=== PATIENT | male | born 1965 | race Caucasian/White ===

== ENCOUNTER 2020-06-08 11:46 | Day surgery (SDC) | payer MEDICARE, MEDICAID ==
[~2020-06-08 11:46] MED LIST: CEFAZOLIN 2 GM/D5W RTU 2 GM/50 ML RTUPB IV PRN; CEFAZOLIN SODIUM 2 GM in DEXTROSE 5%-WATER 100 ML IV PRN; FENTANYL CITRATE INJ/PF 100 MCG/2 ML AMPUL ONE; MIDAZOLAM 2 MG/2 ML INJ ONE; ONDANSETRON HCL INJ/PF 4 MG/2 ML SDV ONE; PROPOFOL INJ 200 MG/20 ML VIAL IV ONE
[2020-06-08] MEDS ORDERED: BUPIVACAINE HCL 0.5 % INJ/PF 30 ML SDV ONE (11:54)
[2020-06-08] MEDS ORDERED: LIDOCAINE 1% INJ-PF (10 MG/ML) 30 ML SDV ONE (11:54)
[2020-06-08] MEDS ORDERED: BACITRACIN INJ 50,000 UNIT VIAL ONE (11:55)
[2020-06-08] MEDS ORDERED: HYDROMORPHONE HCL INJ/PF 2 MG/ML AMPULE ONE ×2 (11:56→15:01)
[2020-06-08] MEDS ORDERED: FENTANYL CITRATE INJ/PF 100 MCG/2 ML AMPUL ONE (11:56)
[2020-06-08] MEDS ORDERED: PROPOFOL INJ 200 MG/20 ML VIAL IV ONE (11:56)
[2020-06-08] MEDS ORDERED: MIDAZOLAM 2 MG/2 ML INJ ONE (11:56)
[2020-06-08] MEDS ORDERED: CEFAZOLIN 2 GM/D5W RTU 2 GM/50 ML RTUPB IV ONE (12:16)
[2020-06-08 12:33] LABS: HEMATOCRIT 43.3 % (37.9-51.0); HEMOGLOBIN 15.1 g/dL (13.5-17.0); MEAN CORPUSCULAR VOLUME 92 fl (80-97); PLATELET COUNT 240 10^3/uL (150-450); RED BLOOD COUNT 4.73 10^6/uL (4.35-5.55); RED CELL DISTRIBUTION WIDTH 14.1 % (11.5-14.0); WHITE BLOOD COUNT 7.1 10^3/uL (4.0-10.5)
[2020-06-08] MEDS ORDERED: BETAMET ACET/BETAMET NA INJ 6 MG/1 ML ONE (12:48)
--- NOTE | 2020-06-08 12:55 | RADIOLOGY REPORT (SQ) ---
EXAM DESCRIPTION: CHEST SINGLE VIEW IMAGES COMPLETED DATE/TIME: 06/08/2020 12:36 pm REASON FOR STUDY: PRE OP COMPARISON: None. EXAM PARAMETERS: NUMBER OF VIEWS: One view. TECHNIQUE: Single frontal radiographic view of the chest acquired. RADIATION DOSE: NA LIMITATIONS: None. FINDINGS: LUNGS AND PLEURA: No opacities, masses or pneumothorax. No pleural effusion. MEDIASTINUM AND HILAR STRUCTURES: No masses. Contour normal. HEART AND VASCULAR STRUCTURES: Heart normal in size. Normal vasculature. BONES: No acute findings. HARDWARE: None in the chest. Hardware in the lower cervical spine. OTHER: No other significant finding. IMPRESSION: NO ACUTE RADIOGRAPHIC FINDING IN THE CHEST. TECHNICAL DOCUMENTATION: JOB ID: [id number] 2010 [employer]- All Rights Reserved Reading location - IP/workstation name: [email or web address]
[2020-06-08 12:59] LABS: ANION GAP 9 (5-19); BLOOD UREA NITROGEN 14 mg/dL (7-20); CALCIUM 9.5 mg/dL (8.4-10.2); CARBON DIOXIDE 22 mmol/L (22-30); CHLORIDE 109 mmol/L (98-107); GLUCOSE 105 mg/dL (75-110); POTASSIUM 4.5 mmol/L (3.6-5.0)
[2020-06-08] MEDS ORDERED: MEPERIDINE HCL/PF INJ 25 MG/1 ML DISP.SYRIN IV PRN (13:24)
[2020-06-08] MEDS ORDERED: FENTANYL CITRATE INJ/PF 100 MCG/2 ML AMPUL IV PRN ×3 (13:24)
[2020-06-08] MEDS ORDERED: DIPHENHYDRAMINE HCL 50 MG/ML VIAL IV PRN (13:24)
[2020-06-08] MEDS ORDERED: PROMETHAZINE HCL INJ 25 MG/1 ML VIAL IV PRN ×2 (13:24)
[2020-06-08] MEDS ORDERED: HYDROMORPHONE HCL INJ/PF 2 MG/ML AMPULE IV PRN ×2 (13:24→14:52)
[2020-06-08] MEDS ORDERED: ONDANSETRON HCL INJ/PF 4 MG/2 ML SDV ONE (14:03)
[2020-06-08] MEDS ORDERED: DEXAMETHASONE SOD PHOSPHATE INJ 4 MG/1 ML VIAL ONE (14:03)
[2020-06-08] MEDS ORDERED: ONDANSETRON HCL INJ/PF 4 MG/2 ML SDV IV PRN (14:52)
[2020-06-08] MEDS ORDERED: OXYCODONE-ACETAMINOPHEN 5-325 MG TABLET PO PRN (14:52)
--- NOTE | 2020-06-08 14:52 | Discharge Summary ---
Discharge Summary (SDC) - Discharge Final Diagnosis: Right distal biceps rupture Date of Surgery: 06/08/20 Discharge Date: 06/08/20 Condition: Good Treatment or Instructions: Schedule Follow Up w/ Dr. Wiliam Sorenson @ [facility] to be seen in 10-14 days or as scheduled [place]: [place]: [place]: Ice and elevate Keep splint clean/dry/intact, do not remove. If your fingers become numb please unwrap the Luis wrap but leave the splint in place, if the sensation does not return within 30 minutes please return to the emergency department. May begin finger range of motion attempting to make full fist. Please use ibuprofen (Motrin or Advil) 600-800 mg every 8 hours as needed for pain or fever DO NOT TAKE w/ TORADOL may use once TORADOL complete. You may also use acetaminophen (Tylenol) 1000 mg every 4-6 hours as needed for pain or fever. Please be aware that many medications contain acetaminophen, do not exceed a total of 1000 mg of acetaminophen every 6 hours. If ibuprofen and acetaminophen are not sufficient for your pain you may take the Percocet/Clio. Please be aware that the Percocet/Clio does contain Tylenol. Stool softener of choice when on pain medication. USE OF [id number] IBUPROFEN: Ibuprofen (Advil, Nuprin, Medipren, Motrin IB) is a medication for fever and pain control. In addition, it has anti- inflammatory effects which may be beneficial, especially in the treatment of injuries. It's best to take ibuprofen with food. Persons with ulcer disease or allergy to aspirin should notify their physician of this before taking ibuprofen. Ibuprofen can be given every four to six hours, for a total of four doses daily. Age Pain or fever dose Antiinflammatory dose 6-8 yr 200 mg (1 tab) 200 mg (1 tab) 9-11 yr 200 mg (1 tab) 200-400 mg (1-2 tab) 11-14 yr 200-400 mg (1-2 tab) 400 mg (2 tab) 15-adult 400 mg (2 tab) 600 mg (3 tab) ORAL NARCOTIC MEDICATION: You have been given a prescription for pain control. This medication is a narcotic. It's best taken with food, as nausea can result if taken on an empty stomach. Don't operate machinery or drive within six hours of taking this medication. Do not combine this medicine with alcohol, or with any medication which can cause sedation (such as cold tablets or sleeping pills) unless you get permission from the physician. Narcotics tend to cause constipation. If possible, drink plenty of fluids and eat a diet high in fiber and fruits. Please be aware that prescription narcotics also have the potential for abuse. People become addicted to these medications because of the general sense of wellbeing that they induce. This feeling along with a significant reduction in tension, anxiety, and aggression provides a stimulating seductive quality to these drugs. Once your pain is under control, we encourage you to discard your unused narcotics. Prescriptions: Ketorolac Tromethamine [Toradol 10 mg Tablet] 10 mg PO Q8HP PRN #12 tablet PRN Reason: Oxycodone HCl/Acetaminophen [Percocet 5-325 mg Tablet] 1 tab PO Q6 PRN #25 tab PRN Reason: Discharge Diet: As Tolerated Respiratory Treatments at Home: Deep Breathing/Coughing, Incentive Spirometer Discharge Activity: No Lifting Over 10 Pounds, No Lifting/Push/Pulling Report the Following to Your Physician Immediately: Fever over 101 Degrees, Unusual Bleeding, Redness, Swelling, Warmth, Increased Soreness
--- NOTE | 2020-06-08 15:00 | Operative Report ---
Operative Report DATE OF SURGERY: 06/08/20 PREOPERATIVE DIAGNOSIS: Right distal biceps rupture. Right shoulder full-thick ness rotator cuff tear. Right small trigger finger POSTOPERATIVE DIAGNOSIS: Same OPERATION: Repair right distal biceps. Injection right shoulder subacromial space, small finger A1 carl SURGEON: LUCIE MENON ANESTHESIA: GA COMPLICATIONS: None ESTIMATED BLOOD LOSS: Minimal PROCEDURE: Indication for above procedure: 51-year-old male who sustained a injury to his right elbow. Patient initially did not seek medical care began to have cramping and increased pain along with deformity. Patient was then seen and MRI ordered confirming distal biceps rupture. At that point we discussed treatment options including operative versus nonoperative intervention after discussing risk and benefits of both decision was made to proceed with operative treatment. Procedure In Detail: Patient was seen and evaluated in the preoperative holding area. The RIGHT upper extremity was initialized and marked. Patient received 2g of Ancef IV for bacterial prophylaxis. Patient was taken back to the operative room where transferred to the operative table and placed under general anesthesia. A surgical team debriefing was performed ensuring all instrumentation was available, the surgical procedure was discussed with possible concerns reviewed. The upper extremity was prepped with ChloraPrep and draped in a sterile fashion. A sterile tourniquet was placed. A timeout was done identifying correct patient, procedure and extremity everyone in attendance agree with this and verbalized no concerns. Subacromial space was injected with 2 cc of 6 mg/cc of Celestone and small finger A1 carl was injected with 1 cc of 6 mg a cc of Celestone. The extremity was exsanguinated the tourniquet was inflated to 250 mmHg. Longitudinal skin incision was made 2 cm distal to the cubital fossa. Small peripheral veins were coagulated with bipolar cautery. Incision made required extension proximally in order to locate the biceps tendon distally. Lateral antebrachial cutaneous nerve was identified there was significant scarring of the nerve to the biceps tendon scarred proximally. Neuro lysis was performed and nerve was retracted and protected throughout the entirety of the case. There was a split of the biceps tendon between the long and short heads. The biceps was provisionally fixated with a traction suture. The 2 heads of the biceps were then repaired to each other with a running 2-0 FiberWire whipstitch. The biceps was then sutured with a #2 Fiber Loop nonviable tendon distally was excised. The biceps tendon was freed circumferentially in order to obtain adequate excursion to allow for repair. Once adequate excursion of the biceps tendon was achieved attention was then turned to the biceps tuberosity. Tourniquet was then deflated. Any peripheral bleeding was controlled with bipolar cautery into the wound was dry. While maintaining full supination of the forearm the radial tuberosity was identified no reversed retractors were placed laterally in order to protect the PIN. A 90 degree retractor was then placed medially. The biceps tuberosity was fully identified. The forearm was placed through full supination and biceps tuberosity exposed with a ruth elevator. A K wire for the Arthrex biceps button was then drilled unit cortically. The biceps tendon was then inserted into the medullary canal and flipped. C arm was obtained confirming that the biceps was adequately flipped. The biceps was then tensioned down to the cortex with the elbow at 70 degrees of flexion with full supination. Horizontal mattress suture was then placed through the biceps and secured. Stability remained with the biceps flexed at 70 degrees of flexion. Wound was then copiously irrigated with normal saline. Skin was closed with interrupted subcuticular 4-0 Monocryl reinforced with Dermabond and Steri- Strips. Patient was placed in a posterior splint with the elbow at 90 degrees of flexion and full supination. Sponge counts, instrument counts, needle counts were correct. Patient was then awoken from anesthesia. Transferred from the operating room table to the operating room stretcher. There was no intraoperative complications patient tolerated procedure well stable to PACU. Plan: Patient will be fitted for a hinged elbow brace with the elbow at 90 degrees of flexion. Will increased extension progressively 10 degrees/week until full extension is obtained.
[2020-06-08] MEDS ORDERED: ROPIVACAINE HCL 0.5% INJ/PF (5 MG/1 ML) 30 ML SDV ONE (15:01)
[2020-06-08] MEDS ORDERED: LIDOCAINE 2% INJ-PF (20 MG/ML) 10 ML AMPUL ONE (15:01)
--- NOTE | 2020-06-08 15:32 | RADIOLOGY REPORT (SQ) ---
EXAM DESCRIPTION: NO CHG FLUORO; ELBOW RIGHT AP/LAT IMAGES COMPLETED DATE/TIME: 06/08/2020 3:13 pm REASON FOR STUDY: RIGHT BICEPS TENDON REPAIR ASSISTED WITH FLUORO IN OR COMPARISON: None. FLUOROSCOPY TIME: 0.2 minutes 2 Images saved to PACS LIMITATIONS: None. PROCEDURE: Biceps tendon repair FINDINGS: Images from fluoro document the procedure. IMPRESSION: Biceps tendon repair. Refer to operative note for further information. COMMENT: PQRS 6045F: Fluoroscopy time of the procedure is documented in the report. TECHNICAL DOCUMENTATION: JOB ID: [id number] 2010 [employer]- All Rights Reserved Reading location - IP/workstation name: [email or web address]
--- NOTE | 2020-06-08 15:32 | RADIOLOGY REPORT (SQ) ---
EXAM DESCRIPTION: NO CHG FLUORO; ELBOW RIGHT AP/LAT IMAGES COMPLETED DATE/TIME: 06/08/2020 3:13 pm REASON FOR STUDY: RIGHT BICEPS TENDON REPAIR ASSISTED WITH FLUORO IN OR COMPARISON: None. FLUOROSCOPY TIME: 0.2 minutes 2 Images saved to PACS LIMITATIONS: None. PROCEDURE: Biceps tendon repair FINDINGS: Images from fluoro document the procedure. IMPRESSION: Biceps tendon repair. Refer to operative note for further information. COMMENT: PQRS 6045F: Fluoroscopy time of the procedure is documented in the report. TECHNICAL DOCUMENTATION: JOB ID: [id number] 2010 [employer]- All Rights Reserved Reading location - IP/workstation name: [email or web address]
[2020-06-08 17:45] VITALS: BP 116/73
== END 2020-06-08 17:40 | disposition home or self-care (01) ==
LOC: OROUT 11:46
PROVIDERS: ATTEND Orthopaedic Surgery
DX: S46.211A Strain of muscle, fascia and tendon of other parts of biceps, right arm, initial encounter (principal); S46.011A Strain of muscle(s) and tendon(s) of the rotator cuff of right shoulder, initial encounter; W50.0XXA Accidental hit or strike by another person, initial encounter; M65.351 Trigger finger, right little finger; X58.XXXA Exposure to other specified factors, initial encounter; Y93.89 Activity, other specified; Z03.818 Encounter for observation for suspected exposure to other biological agents ruled out; G47.33 Obstructive sleep apnea (adult) (pediatric); F17.210 Nicotine dependence, cigarettes, uncomplicated; E66.9 Obesity, unspecified; K21.9 Gastro-esophageal reflux disease without esophagitis; J44.9 Chronic obstructive pulmonary disease, unspecified; G89.29 Other chronic pain; M54.5 Low back pain; Z79.899 Other long term (current) drug therapy; Z98.1 Arthrodesis status
CPT/HCPCS: 36415; 82962; 85027; 80048; 71045; 73070; 01710; 24341 ×2; 20610; 20600; U0003; J2795; J2250; J3490 ×2; J1100; J3010; J1170; J0702; J2405; J2704; J0690; C9803; 87635

== ENCOUNTER → 2020-08-30 | Outpatient (CLI) | payer MEDICARE, MEDICAID | LOC: OD 10:08 | PROVIDERS: ATTEND Orthopaedic Surgery | DX: F17.200 Nicotine dependence, unspecified, uncomplicated (principal) | CPT/HCPCS: 36415; G0480; 80323 ==

== ENCOUNTER → 2020-09-20 | Outpatient (CLI) | payer MEDICARE, MEDICAID | LOC: OD 13:03 | PROVIDERS: ATTEND Orthopaedic Surgery | DX: Z53.9 Procedure and treatment not carried out, unspecified reason (principal) ==